=== PATIENT | male | born 2000 | race Caucasian/White ===

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

== ENCOUNTER → 2018-02-17 | Outpatient (CLI) | payer OTHER ==
[~2018-02-17] MED LIST changes: +GASTROGRAFIN SOLUTION 30ML (Q9963) As Ordered; +ISOVUE-370 76% 100ML VIAL (Q9967) As Ordered; -PROHANCE 279.3MG/ML 15ML VIAL (A9576) As Ordered
== END ==
LOC: M RAD 13:56
DX: R22.2 Localized swelling, mass and lump, trunk (principal)
CPT/HCPCS: Q9963

== ENCOUNTER → 2018-02-19 | Outpatient (CLI) | payer OTHER ==
[~2018-02-19] MED LIST changes: -GASTROGRAFIN SOLUTION 30ML (Q9963) As Ordered; -ISOVUE-370 76% 100ML VIAL (Q9967) As Ordered; +PROHANCE 279.3MG/ML 15ML VIAL (A9576) As Ordered
== END ==
LOC: M RAD 14:37
DX: D49.2 Neoplasm of unspecified behavior of bone, soft tissue, and skin (principal); M50.222 Other cervical disc displacement at C5-C6 level
CPT/HCPCS: A9576

== ENCOUNTER → 2018-02-22 | Outpatient (CLI) | payer OTHER ==
[~2018-02-22] MED LIST changes: -PROHANCE 279.3MG/ML 15ML VIAL (A9576) As Ordered; +PROHANCE 279.3MG/ML 5ML VIAL (A9576) As Ordered
== END ==
LOC: M RAD 14:41
DX: M53.3 Sacrococcygeal disorders, not elsewhere classified (principal)
CPT/HCPCS: A9576

== ENCOUNTER → 2018-05-20 | Outpatient (CLI) | payer OTHER ==
[2018-05-20 15:13] LABS: CHOLESTEROL LEVEL 236 MG/DL (<200); CHOLESTEROL RISK RATIO 5.021 (<5); HDL CHOLESTEROL 47 MG/DL (>40); LDL CHOLESTEROL 171.6 MG/DL (<100); NON-HDL-C 189 MG/DL; TRIGLYCERIDES LEVEL 87 MG/DL (<150)
== END ==
LOC: M WUC 12:18
DX: E78.4 Other hyperlipidemia (principal)
CPT/HCPCS: 80061

== ENCOUNTER 2018-10-07 11:45 | Emergency (ER) | payer OTHER ==
[2018-10-07 12:16] LABS: BASO % 0.1 % (0.0-1.0); EOS % 0.3 % (0.0-3.0); HEMATOCRIT 44.4 % (42.0-52.0); HEMOGLOBIN 15.9 g/dl (13.5-17.5); IMMATURE GRANULOCYTE % 0.3 % (0-3.0); LYMPH # 0.8 10^3/uL (1.5-6.5); MEAN CORPUSCULAR HEMOGLOBIN 31.3 pg (27.0-33.0); MEAN CORPUSCULAR HGB CONC 35.8 g/dl (32.0-36.5); MEAN CORPUSCULAR VOLUME 87.4 fl (80.0-96.0); MONO # 0.4 10^3/uL (0.0-0.8); MONO % 5.4 % (0.0-5.0); NEUTROPHILS # 6.5 10^3/uL (1.8-7.7); NEUTROPHILS % 83.9 % (36.0-66.0); PLATELET COUNT, AUTOMATED 179 10^3/uL (150-450); RED BLOOD COUNT 5.08 10^6/uL (4.30-6.10); RED CELL DISTRIBUTION WIDTH 11.6 % (11.5-14.5); WHITE BLOOD COUNT 7.7 10^3/uL (4.0-10.0)
[2018-10-07 13:00] LABS: ANION GAP 6 MEQ/L (8-16); BLOOD UREA NITROGEN 23 MG/DL (7-18); CARBON DIOXIDE LEVEL 30 MEQ/L (21-32); CHLORIDE LEVEL 102 MEQ/L (98-107); CREATININE FOR GFR 1.09 MG/DL (0.70-1.30); GLUCOSE, FASTING 128 MG/DL (70-100); SODIUM LEVEL 138 MEQ/L (136-145)
[2018-10-07] MEDS: NS 1,000 ML IV (14:07)
[2018-10-07 14:13] LABS: AMORPHOUS SEDIMENT RFX SMALL (NEGATIVE); KETONE, URINE AUTO RFX NEGATIVE (NEGATIVE); LEUKOCYTE ESTERASE UR AUTO RFX NEGATIVE (NEGATIVE); MUCUS, URINE RFX SMALL (NEGATIVE); NITRITE, URINE AUTO RFX NEGATIVE (NEGATIVE); RBC, URINE AUTO RFX 1 /HPF (0-3); SPECIFIC GRAVITY UR AUTO RFX 1.033 (1.002-1.035); SQUAM EPITHELIAL CELL UR AURFX 0 /HPF (0-6); WBC, URINE AUTO RFX 2 /HPF (0-3)
[2018-10-07] MEDS ORDERED: ISOVUE-370 76% 100ML VIAL (Q9967) As Ordered (14:35)
[2018-10-07 15:26] LABS: C REACTIVE PROTEIN QUANTITATIV < 0.30 MG/DL (0.00-0.30)
[2018-10-07 16:22] LABS: ERYTHROCYTE SEDIMENTATION RATE 3 mm/hr (0-15)
[2018-10-07] MEDS: ONDANSETRON 4MG/2ML VIAL (J2405) IV (16:30)
[2018-10-07] MEDS: MORPHINE 4 MG/ML 1ML VIAL/SYRINGE (J2270) IV (16:32)
== END 2018-10-07 18:15 | disposition home or self-care (01) ==
LOC: M ED 11:45
DX: M54.30 Sciatica, unspecified side (principal); R55 Syncope and collapse
CPT/HCPCS: J2270

== ENCOUNTER 2018-10-13 04:23 | Emergency (ER) | payer OTHER ==
[~2018-10-13] VITALS: Ht 167.6 cm; Wt 63.6 kg
[~2018-10-13 04:23] MED LIST changes: +LIPI80TA PO; +NAPR-49 PO; +NORCOTAB PO; -PROHANCE 279.3MG/ML 5ML VIAL (A9576) As Ordered
[2018-10-13] MEDS ORDERED: KETOROLAC 60 MG/2 ML VIAL (J1885) IM ONE (06:00)
[2018-10-13] MEDS ORDERED: AZITHROMYCIN 250 MG TAB PO ONE (06:00)
[2018-10-13] MEDS ORDERED: cefTRIAXone SOD 500 MG VIAL (J0696) IM ONE (06:00)
[2018-10-13] MEDS ORDERED: LIDOCAINE 1% SDV 5 ML VIAL DILUENT ONE (06:00)
--- NOTE | 2018-10-13 06:06 | REPVR ---
EXAM: US Scrotum EXAM DATE/TIME: 10/13/2018 5:47 AM CLINICAL HISTORY: 18 years old, male; Pain; Scrotum pain and other: Significant penile pain; Additional info: R testic pain TECHNIQUE: Real-time ultrasound of the scrotum and contents with color Doppler and image documentation. COMPARISON: No relevant prior studies available. FINDINGS: Right Testicle: The right testicle measures 4.8 x 2.4 x 2.8 CM. The resistive index right testis 0.5 with peak systolic velocity 33 CM per second and end diastolic velocity 1.6 CM per second. No torsion. Left Testicle: The left testicle measures 4.8 x 2.5 x 2.8 CM. Resistive index left testicle 0.54 with peak systolic velocity 7.0 CM per second and end diastolic velocity of 3.2 CM per second. No torsion. Epididymides: Symmetry of the epididymides. Scrotum: Normal. Other findings: No hyperemia. IMPRESSION: Unremarkable bilateral testicular ultrasound. Electronically signed by: Felicita Mosqueda On 10/13/2018 06:06:04 AM
[2018-10-13 06:17] LABS: CHLAMYDIA DNA AMPLIFICATION NEGATIVE (NEGATIVE); GC DNA AMPLIFICATION NEGATIVE (NEGATIVE)
[2018-10-13 06:28] VITALS: BP 137/69
== END 2018-10-13 06:29 | disposition home or self-care (01) ==
LOC: M ED 04:23
DX: N34.2 Other urethritis (principal); Z79.899 Other long term (current) drug therapy
CPT/HCPCS: 76870; 81001; 87491; 87591; 93976; 96372; 99284; J0696; J1885

== ENCOUNTER → 2019-05-23 | Outpatient (CLI) | payer OTHER ==
[~2019-05-23] MED LIST changes: +HYDR-3715 PO; -NAPR-49 PO; +NAPR-837 PO; -NORCOTAB PO
[2019-05-23 20:19] LABS: CHOLESTEROL LEVEL 326 MG/DL (<200); HDL CHOLESTEROL 50 MG/DL (>40); LDL CHOLESTEROL 259 MG/DL (<100); NON-HDL-C 276 MG/DL; TRIGLYCERIDES LEVEL 84 MG/DL (<150)
[2019-05-23 20:39] LABS: RUBELLA IgG QUALITATIVE IMMUNE (IMMUNE)
[2019-05-23 20:41] LABS: APPEARANCE, URINE CLEAR (CLEAR); BACTERIA, URINE AUTO NEGATIVE (NEGATIVE); BILIRUBIN, URINE AUTO NEGATIVE (NEGATIVE); BLOOD, URINE BLOOD NEGATIVE (NEGATIVE); COLOR, URINE YELLOW (YELLOW); GLUCOSE, URINE (UA) AUTO NEGATIVE (NEGATIVE); KETONE, URINE AUTO NEGATIVE (NEGATIVE); LEUKOCYTE ESTERASE, URINE AUTO NEGATIVE (NEGATIVE); MUCUS, URINE SMALL (NEGATIVE); NITRITE, URINE AUTO NEGATIVE (NEGATIVE); PROTEIN, URINE AUTO NEGATIVE (NEGATIVE); RBC, URINE AUTO 1 /HPF (0-3); SPECIFIC GRAVITY URINE AUTO 1.023 (1.002-1.035); SQUAMOUS EPITHELIAL CELL UR AU 0 /HPF (0-6); UROBILINOGEN, URINE AUTO 0.2 mg/dL (0.0-2.0); WBC, URINE AUTO 1 /HPF (0-3)
[2019-05-25 09:14] LABS: MUMPS VIRUS IgG ANTIBODY 99.3 AU/mL (Immune >10.9); RUBEOLA IgG ANTIBODY >300.0 AU/mL (Immune >29.9)
[2019-05-25 10:16] LABS: HEPATITIS B SURFACE ANTIBODY NEGATIVE (POSITIVE)
== END ==
LOC: M WUC 17:21
PROVIDERS: ATTEND Student in an Organized Health Care Education/Training Program
DX: E78.49 Other hyperlipidemia (principal)

== ENCOUNTER 2020-10-13 19:08 | Emergency (ER) | payer OTHER ==
[~2020-10-13] VITALS: Ht 167.6 cm; Wt 75.0 kg
[2020-10-13] MEDS ORDERED: LOPE-39 PO (19:14)
[2020-10-13] MEDS ORDERED: CITA10TA5 PO (19:14)
[2020-10-13] MEDS ORDERED: ACET-838 PO (19:14)
[2020-10-13 20:24] LABS: BASO % 0.4 % (0.0-1.0); EOS % 1.3 % (0.0-3.0); HEMATOCRIT 44.2 % (42.0-52.0); HEMOGLOBIN 15.2 g/dl (13.5-17.5); LYMPH # 0.6 10^3/uL (1.5-5.0); LYMPH % 25.7 % (24.0-44.0); MEAN CORPUSCULAR HGB CONC 34.4 g/dl (32.0-36.5); MEAN CORPUSCULAR VOLUME 87.4 fl (80.0-96.0); MONO # 0.4 10^3/uL (0.0-0.8); MONO % 17.8 % (0.0-5.0); NEUTROPHILS # 1.3 10^3/uL (1.5-8.5); NEUTROPHILS % 54.4 % (36.0-66.0); PLATELET COUNT, AUTOMATED 183 10^3/uL (150-450); RED BLOOD COUNT 5.06 10^6/uL (4.30-6.10); WHITE BLOOD COUNT 2.3 10^3/uL (4.0-10.0)
[2020-10-13 20:37] LABS: ALT/SGPT 20 U/L (12-78); BILIRUBIN,DIRECT < 0.1 MG/DL (0.0-0.2); BILIRUBIN,TOTAL 0.1 MG/DL (0.2-1.0); BLOOD UREA NITROGEN 12 MG/DL (7-18); CALCIUM LEVEL 8.5 MG/DL (8.5-10.1); CARBON DIOXIDE LEVEL 29 MEQ/L (21-32); CHLORIDE LEVEL 105 MEQ/L (98-107); CREATININE FOR GFR 0.95 MG/DL (0.70-1.30); GLOMERULAR FILTRATION RATE > 60.0 (>60); GLUCOSE, FASTING 107 MG/DL (70-100); LIPASE 200 U/L (73-393); SODIUM LEVEL 138 MEQ/L (136-145); TOTAL PROTEIN 7.3 GM/DL (6.4-8.2)
[2020-10-13] MEDS ORDERED: KETOROLAC 30 MG/ML 1ML VIAL IV ONE (20:45)
[2020-10-13] MEDS ORDERED: METOCLOPRAMIDE INJ 10MG/2ML VIAL (J2765 PER 1) IV ONE (20:45)
[2020-10-13] MEDS ORDERED: NS 1,000 ML IV ONE (20:45)
[2020-10-13] MEDS ORDERED: ISOVUE-370 76% 100ML VIAL As Ordered ONE (20:49)
--- NOTE | 2020-10-13 21:25 | REPVR ---
PROCEDURE INFORMATION: Exam: CT Head Without Contrast Exam date and time: 10/13/2020 8:55 PM Age: 20 years old Clinical indication: Pain; Headache; Additional info: Severe headache TECHNIQUE: Imaging protocol: Computed tomography of the head without contrast. Radiation optimization: All CT scans at this facility use at least one of these dose optimization techniques: automated exposure control; mA and/or kV adjustment per patient size (includes targeted exams where dose is matched to clinical indication); or iterative reconstruction. COMPARISON: MRI-Brain W/O FOLL BY WITH 02/22/2018 3:12 PM FINDINGS: Brain: Normal. No hemorrhage. Unremarkable white matter. No mass effect. Cerebral ventricles: No ventriculomegaly. Bones/joints: Unremarkable. No acute fracture. Paranasal sinuses: Visualized sinuses are unremarkable. No fluid levels. Mastoid air cells: Visualized mastoid air cells are well aerated. Soft tissues: Unremarkable. IMPRESSION: No acute intracranial abnormality. Electronically signed by: Dilshad Leon On 10/13/2020 21:25:30 PM
--- NOTE | 2020-10-13 21:39 | REPVR ---
PROCEDURE INFORMATION: Exam: CT Angiography Chest With Contrast Exam date and time: 10/13/2020 8:55 PM Age: 20 years old Clinical indication: Shortness of breath; Chest pain; Additional info: Chest pain/sob; CA HX; R/O pe TECHNIQUE: Imaging protocol: Computed tomographic angiography of the chest with intravenous contrast. 3D rendering (Not supervised by radiologist): MIP and/or 3D reconstructed images were created by the technologist. Radiation optimization: All CT scans at this facility use at least one of these dose optimization techniques: automated exposure control; mA and/or kV adjustment per patient size (includes targeted exams where dose is matched to clinical indication); or iterative reconstruction. Contrast material: ISOVUE 370; Contrast volume: 100 ml; Contrast route: INTRAVENOUS (IV); COMPARISON: CT Chest with contrast 02/17/2018 3:29 PM FINDINGS: Pulmonary arteries: There is mild right hilar adenopathy, greatest inferiorly which is encases and slightly narrows a right lower lobe pulmonary artery branch to the medial basal region. The main pulmonary artery measures 21 mm. No pulmonary embolism is identified. Aorta: The ascending thoracic aorta measures 25 mm. Lungs: Posterior right upper lobe pulmonary nodule adjacent to the major fissure with contouring of the adjacent fissure measuring 16 x 10 x 15 mm. There is also a large lobular nodule in the lingula measuring 25 x 18 x 16 mm. There are multiple additional smaller nodules throughout the remaining lobes bilaterally. Findings are new since the prior study. Pleural space: Unremarkable. No pneumothorax. No pleural effusion. Heart: Unremarkable. No cardiomegaly. No pericardial effusion. Lymph nodes: Unremarkable. No enlarged lymph nodes. Gallbladder and bile ducts: The gallbladder is contracted with no stones. Bones/joints: Unremarkable. No acute fracture. Soft tissues: Unremarkable. IMPRESSION: 1. Multiple bilateral pulmonary nodules and right hilar adenopathy which is new since 02/17/2018 and viewed with suspicion for metastatic disease. 2. Otherwise negative CTA chest. No pulmonary embolism is identified. Electronically signed by: Franco Rondon On 10/13/2020 21:39:31 PM
--- NOTE | 2020-10-13 21:53 | REPVR ---
PROCEDURE INFORMATION: Exam: CT Abdomen And Pelvis With Contrast Exam date and time: 10/13/2020 8:55 PM Age: 20 years old Clinical indication: Nausea and vomiting; Abdominal pain; Generalized; Additional info: Abdominal pain; N/v TECHNIQUE: Imaging protocol: Computed tomography of the abdomen and pelvis with intravenous contrast. Radiation optimization: All CT scans at this facility use at least one of these dose optimization techniques: automated exposure control; mA and/or kV adjustment per patient size (includes targeted exams where dose is matched to clinical indication); or iterative reconstruction. Contrast material: ISOVUE 370; Contrast volume: 100 ml; Contrast route: INTRAVENOUS (IV); COMPARISON: CT PEL W/IV CONTRAST ONLY 10/07/2018 2:34 PM FINDINGS: Lungs: Multiple bibasilar pulmonary nodules. Liver: Normal. No mass. Gallbladder and bile ducts: The gallbladder is contracted with no stones. Pancreas: Normal. No ductal dilation. Spleen: Normal. No splenomegaly. Adrenal glands: Normal. No mass. Kidneys and ureters: Normal. No hydronephrosis. Stomach and bowel: Unremarkable. No obstruction. No mucosal thickening. Appendix: A normal appendix is seen. Intraperitoneal space: Unremarkable. No free air. No significant fluid collection. Vasculature: Unremarkable. No abdominal aortic aneurysm. Lymph nodes: Unremarkable. No enlarged lymph nodes. Urinary bladder: Unremarkable as visualized. Reproductive: Unremarkable as visualized. Bones/joints: There is a destructive lesion of the upper sacrum centered at the S2 level with adjacent sclerosis which is significantly increased since the prior study. There is posterior soft tissue infiltration and ill-defined mass with sclerotic erosion of the spinous process of L5. Presacral soft tissue infiltration mass with presacral soft tissues measuring 19 mm in thickness which is new since the prior study. Soft tissues: Thickening and confluence in the left inguinal region which is slightly decreased since the prior study and consistent with postoperative change. There is subcutaneous infiltration posterior to the sacral process which may reflect some subcutaneous extension. IMPRESSION: 1. Increased infiltrative mass centered in the sacrum since 10/07/2018 with sclerosis and lytic destruction of much of the sacrum since the prior study. There is presacral soft tissue extension as well as posterior extension with sclerotic erosion of the spinous process of L5. Overlying subcutaneous infiltration is also noted. 2. Multiple bibasilar pulmonary nodules consistent with metastatic disease. 3. Thickening and confluence in the left inguinal region which is slightly decreased and better marginated since the prior study consistent with healing postoperative change. 4. Otherwise negative CT abdomen/pelvis. Electronically signed by: Franco Rondon On 10/13/2020 21:53:13 PM
[2020-10-13] MEDS ORDERED: ONDA4TAB6 PO (22:48)
[2020-10-13] MEDS ORDERED: ONDANSETRON 4 MG ORAL DISINTEGRATING TAB PO ONE (23:00)
[2020-10-14 00:04] VITALS: BP 138/61
== END 2020-10-14 00:10 | disposition home or self-care (01) ==
LOC: M ED 19:08
DX: K52.9 Noninfective gastroenteritis and colitis, unspecified (principal); C79.9 Secondary malignant neoplasm of unspecified site; Z79.899 Other long term (current) drug therapy
CPT/HCPCS: 70450; 71275; 74177; 80048; 80076; 83690; 85025; 96361; 96374; 96375; 99284; J1885; J2765; Q0162; Q9967